=== PATIENT | female | born 1950 | race Caucasian/White ===

== ENCOUNTER 2022-03-23 16:16 | Inpatient (IN) | payer OTHER, SELFPAY ==
[2022-03-22] VITALS (22 sets, daily range): BP systolic 122–154; BP diastolic 61–87; PULSE 47–90; RESP 11–18; TEMP 35.5–36.2; O2SAT 88–97; BMI 37.0
[2022-03-22] MEDS: LACTATED RINGERS 1000 ML 1,000 ML 100 ML IV ×2 (11:00→13:53)
[2022-03-22] MEDS: CEFAZOLIN 2 GM INJ IVP (11:30)
[2022-03-22] MEDS: SODIUM CHLORIDE 0.9 % (FLUSH) 10 ML SYRINGE IVF (11:38)
--- NOTE | 2022-03-22 13:19 | SUR.PREOP ---
right calf small open scratch. blood noted on chair when pt stood up. Covered with bandaid.
--- NOTE | 2022-03-22 14:17 | SUR.OPER ---
PATIENT QUESTIONS ANSWERED SATISFACTORILY PREOPERATIVELY. ? PATIENT BROUGHT TO OR #4 PER CART. ? ?Patient positioned supine on OR #4 bed.?The perioperative?team supported arms bilaterally on arm boards. Final approval of positioning by surgeon.?
--- NOTE | 2022-03-22 15:20 | P.GSOP_ITS ---
Operative Note Date of procedure: 03/26/22 Type of Procedure: open retro rectus ventral hernia repair with placement of mesh. Incarcerated recurrent hernia. Procedure Description: Dr. Buckner was in the operating room and had already made an incision when I came in. I assisted with retraction while she continued through dissection of the subcutaneous tissues. Dissection was continued with electrocautery. She was able to identify the anterior fascia. Dissection was made difficult secondary to multiple hernias and hernia sacs that were present, As well as associated scar tissue from previous surgeries. A hernia sac was identified and sharply entered with Metzenbaum scissors. Once in the abdomen we were able to take down adhesions sharply with Metzenbaum scissors. I assisted with retraction at this portion of the procedure while Dr. Buckner carefully dissected bowel away from the abdominal wall. once all of the adhesions were taken down we were able to identify several hernias within the midline. A large hernia was also present right lateral to midline with incarcerated omentum and preperitoneal fat. This was able to be reduced in the hernia sac taken down. the anterior fascia was incised superiorly and inferiorly to connect all of the associated hernias. I then assisted with retraction of the anterior fascia well Dr. Buckner created a plane anterior to the posterior fascia. This was performed with electrocautery and carried circumferentially around all of the known hernias. Once circumferential dissection was performed she then brought together the posterior fascia with running 0 Vicryl suture. The resulting defect was measu red and Dr. Buckner chose the appropriate sized mesh to place within the cavity, allowing for overlap. The mesh fit nicely into this retro rectus space and was secured with interrupted trans fascial stitches of 2 0 Prolene. The anterior fascia was then brought together with two running looped 0 Maxon sutures. At this portion of the procedure I left the operating room. Please see Dr. Buckner note for further details and closure. ? Findings: Multiple ventral hernias of the anterior abdominal wall Anesthesia: GETA Surgeon: Enedina Buckner MD Co-Surgeon: Ashley Arauz MD Condition: stable Disposition: floor
[2022-03-22] MEDS: BUPIVACAINE 0.25% 30 ML INJECTION (15:23)
--- NOTE | 2022-03-22 15:41 | PM.GSPRC ---
Operative Note Date of procedure: 03/22/22 Type of Procedure: Open repair of incarcerated recurrent ventral hernia. Procedure Description: After discussing the risks and benefits of the procedure, the patient signed informed consent.? The operative site was marked and the patient was brought to the operating room and placed on the operating table in supine position.? Care was taken to pad the patient's pressure points.?? The patient was then intubated by anesthesia.?? The operative site was then prepped and draped in the usual sterile fashion.? A time-out was then performed. The hernia was noted to be in the upper portion of her incision. I incised her prior abdominal incision with a knife above the umbilicus. Dissection was taken down into the subcutaneous fat in the midline. She was noted to have at least 2 medium-sized hernias, 1 to the right of midline. I continued my dissection down in the midline until some prior Prolene suture was encountered. The midline was incised and I was able to enter the peritoneal cavity. I then identified the hernia defect just superior to this. I connected openings. I then palpated in the abdominal cavity. There was some filmy adhesions however no dense bowel adhesions noted. I was able to palpate another small Panamanian cheese defect inferiorly above the umbilicus as well as just to the left of this. I then encountered a much larger defect on the right above the umbilicus. I incised the fascia to just above the umbilicus to encompass all of the small hernia defects in the midline as well as to the upper hernia defect near the superior aspect of the old incision. Once this was done I did reduce do so the right-sided abdominal hernia which contained incarcerated fat. The hernia defect measured approximately 3 cm. There was a small amount of filmy adhesions to the fascia which I took down sharply with scissor. During this time Dr. Arauz assisted in retraction of the fascia as well as intra-abdominal contents facilitate lysis of these adhesions once the posterior rectus sheath appeared to be free and all the hernias were identified and reduced, I began by entering the posterior rectus sheath just posterior to the now divided linea alba. Using cautery, I incised the posterior rectus sheath the rectus muscle was identified. Using a right angle I did open the posterior rectus sheath down the length of the incision on the right. Once I encountered the more lateral hernia defect, I dissected the posterior sheath free with a combination of cautery and blunt dissection While I did this, Dr. Arauz retracted the anterior rectus sheath anteriorly. Once this was done, I closed the hole in the posterior rectus sheath with 3-0 Vicryl. I then turned my attention to the left side. Again I incised the rectus sheath just behind the midline posteriorly. I encountered some old hernia mesh which appeared to be from a prior onlay repair. I was able to identify the rectus muscles and again dissect the posterior rectus sheath from the rectus muscles, creating a retrorectus space. I took my dissection up above and below the prior hernia defects in order to create a space to place the mesh. Once this was done the wound was examined for hemostasis which appeared adequate. Prolene sutures from the patient's prior abdominal plasty were removed. I then, using 0 Vicryl began closing the posterior rectus fascia. I closed the bottom portion of the posterior rectus sheath whilel Dr. Arauz retracted the anterior rectus sheath and rectus abdominus muscles. Dr. Arauz then closed the superior aspect of the posterior rectus sheath in the midline. There was a small amount of tension superiorly, however otherwise the tissue came together without tension. The space was measured and measured approximately 14 cm. The prior space between the hernia defects were noted to be 9 cm. This gave us 5 cm of overlap. Because of the patient's history of Crohn disease, I elected to use Phasix mesh rather than permanent mesh in the event that she would need further abdominal surgeries. I obtained a piece of 10 x [address] in the space. It fit quite well. Subcutaneous flaps were made on either side of the incision just large enough to place a stay suture to hold the mesh in place. I then placed 2, 2 0 PDS stitches through the anterior rectus sheath on the right into the mesh to hold it in place in the space. Dr. Arauz then placed 2, 2 0 PDS stitches on the left to hold the mesh into place. There was a fairly large hernia sac in the subcutaneous space on the right from the patient's more lateral hernia defect. The hernia sac was removed. I then closed the anterior fascial defect of the right lateral hernia using a running 1. PDS. Once this was done, the anterior rectus sheath was closed with running looped [address] Arauz assisted in retraction. This came together without tension. There was no change in the patient's peak ventilatory pressures. Local anesthetic was then injected in the skin and subcutaneous tissue as well as the fascia. I then placed 1 stitch with 3 0 Vicryl to help close the space where the right lateral hernia was located and prevent fluid accumulation. The dermis was then closed with 3 0 Vicryl interrupted stitches. The skin was then closed with 4 0 Monocryl running subcuticular suture. Glue was then applied. ?? The patient was then woken and transported to the recovery area in stable condition. ? The patient tolerated the procedure well. Findings: Panamanian-cheese defect of the upper abdominal incision with several small 1 cm defects and 1, 3 cm defect off the midline. Evidence of prior hernia repair and abdominal plasty. Anesthesia: GETA Surgeon: Enedina Buckner MD Co-Surgeon: Ashley Arauz MD Estimated blood loss (mL): 10 Condition: stable Disposition: PACU
--- NOTE | 2022-03-22 15:51 | W.ANESCHARGE ---
Anesthesia Charges Start Date/Time Anesthesia Start Date: 03/22/22 Anesthesia Start Time: 13:22 Stop Date/Time Anesthesia Stop Date: 03/22/22 Anesthesia Stop Time: 15:45 Summary Emergency: No Extremes of Age: Over 69-CPT [id number]
[2022-03-22] MEDS: fentaNYL 100 MCG/2 ML inj 50 MCG IVP ×3 (16:03→16:23)
[2022-03-22] MEDS: LACTATED RINGERS 1000 ML 1,000 ML 125 ML IV (17:22)
[2022-03-22] MEDS: HYDROmorphone 0.5 mg/0.5 ml inj IVP (18:45)
[2022-03-22] MEDS: TRAMADOL HCL 50 MG TABLET PO (20:46)
[2022-03-22] MEDS: GABAPENTIN 100 MG CAPSULE PO (20:46)
[2022-03-22] MEDS: CYCLOBENZAPRINE HCL 10 MG TABLET PO (20:46)
[2022-03-22] MEDS: diphenhydrAMINE 25 MG CAPSULE PO (23:50)
[2022-03-23] MEDS: LACTATED RINGERS 1000 ML 1,000 ML 125 ML IV (00:46)
[2022-03-23] MEDS: ONDANSETRON 2 MG/ML inj IVP (01:58)
[2022-03-23 02:45] VITALS: BP 165/90; PULSE 69; RESP 20; TEMP 36.3; O2SAT 96
[2022-03-23] MEDS: TRAMADOL HCL 50 MG TABLET PO ×4 (03:21→20:35)
--- NOTE | 2022-03-23 06:35 | W.ANESCHARGE ---
Anesthesia Charges Start Date/Time Anesthesia Start Date: 03/22/22 Anesthesia Start Time: 13:22 Stop Date/Time Anesthesia Stop Date: 03/22/22 Anesthesia Stop Time: 15:45 Summary Emergency: No
--- NOTE | 2022-03-23 06:56 | PC.NURSE ---
pt pleasant and cooperative. Calls appropriately. SBA. c/o pain in abd, Ultram given x 2. pt requested something for sleep & had mentioned she was itchy, [facility] called & Benadryl ordered, pt stated relief.?BP 130s/80s. HR 60s-70s. Midline vertical incision [place], glue intact, no drainage, surrounding tissue is pink. Abd binder on. Ice to abdomen. Bowel sounds hypoactive. Pt states she has not yet passed flatus.?No BM.
[2022-03-23 07:00] VITALS: BP 138/72; PULSE 68; RESP 18; TEMP 36.7; O2SAT 94
[2022-03-23] MEDS: GABAPENTIN 100 MG CAPSULE PO (08:23)
[2022-03-23] MEDS: ACETAMINOPHEN 325 MG TABLET 650 MG PO ×4 (08:23→22:33)
[2022-03-23] MEDS: OMEPRAZOLE 20 MG CAPSULE DR PO (08:23)
[2022-03-23 11:00] VITALS: BP 140/59; PULSE 68; RESP 24; O2SAT 93
--- NOTE | 2022-03-23 12:03 | P.GSPN_ITS ---
Subjective Subjective Date Seen: 03/23/22 Interval history: Chrissy is stable. She is having pain as expected at the incision site. This morning she had indigestion which was helped with Mylanta. Pain is controlled with p.o. pain meds. She has been using her incentive spirometry. No chest pain or shortness of breath. She did have a mild amount of nausea this morning. She is not passing any gas. Exam Narrative: Exam Narrative: General: No acute distress CV: Regular rate and rhythm Respiratory: Clear to auscultation bilaterally Abdomen: Soft, appropriately tender for the postoperative state. Incision is clean and dry without erythema Const: Vital Signs, click to edit/add: Vital Signs - 24 hr 03/22/22 15:43 03/22/22 15:45 03/22/22 15:50 Temperature 96.7 F L Pulse Rate 67 61 61 Pulse Rate [Right Pulse Oximeter] Respiratory Rate 12 13 15 Blood Pressure 153/85 H 154/79 H 145/74 H Blood Pressure [Le ft Arm] Pulse Oximetry 90 91 90 03/22/22 15:55 03/22/22 16:00 03/22/22 16:05 Temperature Pulse Rate 63 59 L 60 Pulse Rate [Right Pulse Oximeter] Respiratory Rate 14 14 14 Blood Pressure 143/74 H 153/78 H 153/82 H Blood Pressure [Le ft Arm] Pulse Oximetry 94 94 91 03/22/22 16:10 03/22/22 16:15 03/22/22 16:20 Temperature 96.8 F L Pulse Rate 56 L 60 60 Pulse Rate [Right Pulse Oximeter] Respiratory Rate 12 13 12 Blood Pressure 148/74 H 144/61 H 146/73 H Blood Pressure [Le ft Arm] Pulse Oximetry 94 94 94 03/22/22 16:25 03/22/22 16:30 03/22/22 16:34 Temperature Pulse Rate 56 L 60 65 Pulse Rate [Right Pulse Oximeter] Respiratory Rate 12 11 L 12 Blood Pressure 146/78 H 128/65 140/65 H Blood Pressure [Le ft Arm] Pulse Oximetry 91 97 92 03/22/22 16:45 03/22/22 17:00 03/22/22 17:15 Temperature 96.3 F L 96.6 F L 96.7 F L Pulse Rate 47 L Pulse Rate [Right Pulse Oximeter] 47 L 59 L 59 L Respiratory Rate 16 16 16 Blood Pressure Blood Pressure [Le ft Arm] 122/69 139/81 139/66 Pulse Oximetry 88 97 96 03/22/22 17:30 03/22/22 17:45 03/22/22 18:15 Temperature 96 F L Pulse Rate Pulse Rate [Right Pulse Oximeter] 60 58 L 62 Respiratory Rate 16 16 16 Blood Pressure Blood Pressure [Le ft Arm] 133/68 141/72 H 134/70 Pulse Oximetry 97 97 94 03/22/22 18:45 03/22/22 20:00 03/22/22 23:00 Temperature 96.7 F L 96.8 F L 97 F L Pulse Rate Pulse Rate [Right Pulse Oximeter] 64 66 74 Respiratory Rate 16 16 16 Blood Pressure Blood Pressure [Le ft Arm] 138/74 141/81 H 138/87 Pulse Oximetry 95 96 96 03/23/22 02:45 03/23/22 07:00 03/23/22 11:00 Temperature 97.3 F L 98.1 F Pulse Rate Pulse Rate [Right Pulse Oximeter] 69 68 68 Respiratory Rate 20 18 24 Blood Pressure Blood Pressure [Le ft Arm] 165/90 H 138/72 140/59 H Pulse Oximetry 96 94 93 Progress Note: A&P Assessment and plan (1) S/P hernia repair: Status: Acute Assessment and Plan: The patient is a 71-year-old female postop day 1 status post ventral hernia repair with mesh. Overall she is doing well, however expectedly she is having abdominal pain. Because of the extent of surgery, I recommend that she stay in the hospital at least 1 more day until her pain is better controlled. It is ok ay to advance her diet however if she is nauseated she should go slow. I encouraged ambulation and incentive spirometry. She can wear the abdominal binder for comfort. We will saline lock her fluids. I will start Lovenox for DVT prophylaxis.
[2022-03-23] MEDS: GABAPENTIN 100 MG CAPSULE 200 MG PO ×2 (13:31→20:35)
[2022-03-23 15:00] VITALS: BP 156/92; PULSE 62; TEMP 36.6; O2SAT 92
--- NOTE | 2022-03-23 18:30 | PC.NURSE ---
shift [id number] pt ambulating independently down halls, pain managed with tylenol and tramadol per eMAR. Incision CDI, abdominal binder for comfort intermittently. Tolerating regular diet. Used white noise machine to help take an afternoon nap, and request for Melatonin HS sent to hospitalist on unit, waiting for response. Pt calm and cooperative this shift.
[2022-03-23 19:00] VITALS: BP 152/76; PULSE 63; RESP 20; TEMP 36.6; O2SAT 94
[2022-03-23] MEDS: ENOXAPARIN 40 MG/0.4 ML INJ SUBCUT (20:35)
[2022-03-23] MEDS: CYCLOBENZAPRINE HCL 10 MG TABLET PO (20:35)
[2022-03-23] MEDS: MELATONIN 3 MG TABLET 9 MG PO (21:25)
[2022-03-23 22:57] VITALS: BP 143/67; PULSE 68; RESP 20; TEMP 36.7; O2SAT 97
[2022-03-24 03:00] VITALS: BP 140/55; PULSE 71; RESP 20; TEMP 36.6; O2SAT 93
[2022-03-24] MEDS: TRAMADOL HCL 50 MG TABLET PO (04:47)
--- NOTE | 2022-03-24 06:28 | PC.NURSE ---
Shift 7p-7a: Pt. AOx4, following commands, VSS on RA. Pt. ambulating to toilet and around room independently, c/o pain around abdominal incision site, managed with PRN tylenol and tramadol. Abdominal incision site C/D/I, no redness or signs of infection, covered in an abdominal binder for pt. comfort. Pt. prefers to keep binder on for ambulation. CLIFFORD hose on, SCD's off as pt. is ambulating frequently. Pt. voiding w/o difficulty. Plan for possible discharge to home today
[2022-03-24 07:00] VITALS: BP 136/88; PULSE 78; PULSE 80; RESP 20; TEMP 37.1; O2SAT 95
[2022-03-24] MEDS: GABAPENTIN 100 MG CAPSULE 200 MG PO (09:13)
[2022-03-24] MEDS: ACETAMINOPHEN 325 MG TABLET 650 MG PO (09:13)
[2022-03-24] MEDS: OMEPRAZOLE 20 MG CAPSULE DR PO (09:13)
--- NOTE | 2022-03-24 09:15 | PM.DS1 ---
DS: Providers Provider Date Seen: 03/23/22 Date of admission: 03/23/22 16:16 Primary care physician: Ciaran Wayne MD Admitting Clinician: Enedina Buckner MD Attending Physician on discharge: Enedina Buckner MD DS: Diagnosis Discharge Diagnosis (1) S/P hernia repair: Status: Acute DS: Summary Hospital Course Hospital Course: The patient is a 71 yo female who underwent ventral hernia repair on 03/22/22. Post-operatively she was admitted for pain control. She did well and was deemed safe for d/c home on post-op day 2. Status at Discharge Functional status at discharge: independent ambulation Overall status at discharge: patient is back to baseline Time Spent with Patient Time attestation: Total time spent providing and/or coordinating discharge services: Exam Const: Vital Signs, click to edit/add: Vital Signs - 24 hr 03/23/22 11:00 03/23/22 15:00 03/23/22 19:00 Temperature 97.8 F 98 F Pulse Rate [Right Pulse Oximeter] 68 62 63 Respiratory Rate 24 20 Blood Pressure [Le ft Arm] 140/59 H 156/92 H 152/76 H Pulse Oximetry 93 92 94 03/23/22 22:57 03/24/22 03:00 Temperature 98.1 F 97.9 F Pulse Rate [Right Pulse Oximeter] 68 71 Respiratory Rate 20 20 Blood Pressure [Le ft Arm] 143/67 H 140/55 H Pulse Oximetry 97 93 Discharge Plan Discharge Disposition: Home, Self-Care Date of Admission: 03/23/22 16:16 Attending Provider on Discharge: Enedina Buckner Primary Care Provider: Ciaran Wayne Condition: Stable Anticipated Discharge Date/Time: 03/24/22 14:14 Discharge Medications: New tramadol 50 mg Tablet 50 - 100 mg PO Q6H PRN (Reason: Pain) Qty: 20 0RF gabapentin 100 mg Capsule 200 mg PO TID Qty: 42 0RF Continued cyclobenzaprine 10 mg tablet 10 mg PO HS 0RF omeprazole 20 mg capsule,delayed release(DR/EC) 20 mg PO DAILY 0RF albuterol sulfate 90 mcg/actuation HFA aerosol inhaler 2 inh inhalation Q4-6H PRN0RF melatonin 5 mg tablet,chewable 7.5 mg PO HS 0RF Discharge Orders: Discharge Order (Routine); Ordered 03/24/22 Ordered By: Enedina Buckner Patient Education: Open Herniorrhaphy (DC), Surgical Site Infections (DC), Deep Sedation (DC), Post-Operative Instructions: Hernia Repair Activity Restrictions/Additional Instructions: Your sutures are under the skin and will dissolve over time. Leave glue over incisions until it falls off. OK to shower but avoid bathing, soaking or swimming for 2 weeks. Pat the incisions dry. No need to wash or scrub the area. Apply ice to the area as needed for swelling. It is also OK to use a heating pad if this provides more comfort to you. Pain control: You were prescribed two pain medications. The 1st medication is called gabapentin and you take that scheduled 3 times a day. You should take this for 1 week after surgery and after this you can start decreasing the dose to 100 mg 3 times a day if you are feeling that your pain has improved. The 2nd pain medication you take as needed for moderate to severe pain. As your pain improves, you can try taking acetaminophen instead of the prescribed pain pill. Take an [id number] stool softener while you are taking prescribed pain medications to help alleviate constipation. I recommend Senna and/or Colace. Take as directed on package. If you have not had a bowel movement in 3 days, try taking Miralax as directed on the package. All of these are available over the counter. Follow-up Follow up with Dr. Buckner in 2-3 weeks Please call if you are experiencing severe pain, nausea, vomiting, difficulty urinating, fever or have not had bowel movement in 4 days after surgery. Activity Level: No strenuous activity Activity Detail: No lifting more than 20 lb for 4 weeks Discharge Diet: Regular Follow Up Appointments: Ciaran Wayne MD [Primary Care Provider] - Forms: Work/Release Restrictions
--- NOTE | 2022-03-24 11:56 | PC.NURSE ---
Discharge Note: Pt friendly and cooperative this morning, continues to c/o 4-6/10 pain that improves with ice and PRN medications. She is up moving independently throughout her room wearing abdominal binder for support. Tolerating regular diet without difficulty. Surgical incision to medial abdomen well approximated and appears free of infection. Pt verbalizes understanding of discharge instructions and follow up appointments. She was discharged to home via wheelchair in the care of her daughter at 1050.
== END 2022-03-24 12:01 | disposition home or self-care (01) | DRG 354 ==
LOC: OR 16:23 → MEDSURG 03-24 09:15
PROVIDERS: Admitting Provider Surgery; PCP Family Medicine; Visit Provider Surgery
PROC: 0WUF0JZ Supplement Abdominal Wall with Synthetic Substitute, Open Approach (ICD-10-PCS; principal; 2022-03-22 12:45)
DX: K43.0 Incisional hernia with obstruction, without gangrene (principal); K50.90 Crohn's disease, unspecified, without complications; R73.03 Prediabetes; M79.7 Fibromyalgia
CPT/HCPCS: 00752; 99100; A4467; A9270; C1781; J0131; J0330; J0690; J1100; J1170; J1650; J2405; J2704; J2710; J3010; J3490; J7120

== ENCOUNTER 2024-12-26 08:53 | Emergency (ER) | payer OTHER, SELFPAY ==
[2024-12-26] VITALS (35 sets, daily range): BP systolic 132–172; BP diastolic 72–97; PULSE 61–74; RESP 9–32; TEMP 36.6; O2SAT 94–99; BMI 32.9
--- OUTSIDE RECORDS SUMMARY | 2024-12-26 08:55 | XMS_ITS | Clinical Summary ---
Author Organization [facility] Address [address] [place] [address] Care Team Providers Care Equipment Superintendent Name Role Phone Ciaran Wayne MD Unavailable Ciaran Wayne MD Primary Care Provider Benita Navas RN Unavailable [phone] Racheal Velazquez RN Unavailable [phone] Katherine Guzman RN Unavailable Allergies Active Allergy Reactions Criticality Noted Date Comments House Dust 12/30/2006 Latex Erythema 06/27/2010 Oxycodone Other - Describe In Comment Field 05/29/2012 crawly sensation. Medications cholecalciferol, vitamin D3, 100 mcg (4,000 unit) tab Take 1 Tablet by mouth once daily. Active cyclobenzaprine (FLEXERIL) 10 mg tabletIndications :Fibromyalgia Take 1 Tablet (10 mg) by mouth 2 times daily if needed for Muscle Spasm. 180 Tablet 1 5 Active diphenoxylate-atr opine, 2.5-0.025 mg, (LOMOTIL) 2.5-0.025 mg tabletIndications :Crohn's disease of small intestine with complication (HC) Take 1 Tablet by mouth 3 times daily if needed for Diarrhea. 180 Tablet 5 5 Active ketoconazole 2% shampoo (NIZORAL) 2 % shampooIndication s:Seborrhea capitis Lather on damp scalp, leave on for 5min, then rinse with water. Apply 2-3 times per week Apply topically to affected area(s). 120 mL 3 Active Active Problems Problem Noted Date Diagnosed Date Obesity 10/01/2023 Small bowel obstruction (HC) Recurrent. 09/05/19 Crohn's disease of small intestine with complica tion 02/27/2022 Overview (12/26/2023): Colonoscopy 11/2023 a few ileal erosions, repeat colonoscopy in 5 years, fecal calprotectin yearly Psoriasis 08/10/2014 Overview (08/10/2014): Sees Dermatology. Degenerative arthritis of knee 06/23/2014 Overview (08/10/2014): bilateral knee injections by Dr. Sage around 2011. May 2014: bilateral cortisone injections to knees by Dr. Loo: 80% better in both knees but for only 2 weeks. July 2014: left knee synvisc One injection. Family history of malignant neoplasm of gastrointestinal tract 07/16/2011 Vitamin D deficiency 04/09/2011 Fibromyalgia 02/09/2010 Anxiety state, unspecified 11/11/2008 Chronic airway obstruction, not elsewhere classi fied 06/30/2007 Insomnia, unspecified 06/30/2007 Resolved Problems Problem Noted Date Diagnosed Date Resolved Date YANIV (acute kidney injury) 09/07/2022 Sepsis with acute organ dysfunction 09/05/2022 10/01/2023 SBO (small bowel obstruction) 03/28/2021 02/27/2022 CAP (community acquired pneumonia) 12/06/2020 02/27/2022 UTI (urinary tract infection) 12/06/2020 02/27/2022 YANIV (acute kidney injury) 12/06/2020 Diarrhea 12/06/2020 02/27/2022 Elevated LFTs 12/06/2020 02/27/2022 SBO (small bowel obstruction) 08/21/2018 02/27/2022 Benzodiazepine dependence 02/21/2017 Tobacco use disorder 07/09/2012 022 Crohn disease 02/09/2010 02/16/2020 Overview (07/18/2011): Colonoscopy 06/2011 few erosions in ileum repeat in 5 years Hypokalemia 11/11/2008 02/27/2022 Regional enteritis of small intestine with large intestine 12/26/2007 02/16/2020 Chronic fatigue syndrome 06/30/200712/2021 Regional enteritis of unspecified site 12/30/2006 12/26/2007 Crohn's disease of both smal l and large intestine without complication 0 Encounters Date Type Department Care Team Description 10/29/2024 11:40 AM GRADUATION COACH Ancillary Procedure [facility] [address] [place] [address] 10/29/2024 Travel 10/29/2024 Telephone [facility] [address] [place] [address] Ciaran Wayne MD Concerns 10/26/2024 Telephone [facility] [address] [place] [address] Ciaran Wayne MD Results 10/23/2024 2:05 PM GRADUATION COACH Office Visit [facility] [address] [place] [address] Ciaran Wayne MD Medicare ANNUAL (subsequent) Visit (73 year old) 10/23/2024 Telephone [facility] [address] [place] [address] Ciaran Wayne MD Results 10/23/2024 Travel from Last 3 Months Immunizations Immunization Administration Dates Next Due Influenza Virus, Unspecified 06/01/2010 Influenza, IIV3 (Age >=3 years) 05/29/20 12,07/05/2011,05/17/2009,2007,06/30/2007,06/06/2006,06/13/2005,1 ,06/10/2003 Influenza, IIV4 06/10/2014 Pneumococcal Conj 20-valent (Prevnar 20) 10/01/2023 Pneumococcal Poly,23-Valent (Pneumovax) 06/26/2016 Pneumococcal conj 13-Valent (Prevnar 13) 07/01/2015 Td (Age >=7 Years) 05/07/2002 Tdap 07/05/2011 Zoster (Zostavax-ZVL, live) 07/06/2015 Family History Medical History Relation Name Comments Heart Disease Father [place] in his 50s Cancer-breast Maternal Aunt Cancer Maternal Grandfather throat Cancer-breast Maternal Grandmother Brain cancer Mother at 95 Cancer-colon Mother Hypertension Mother Other Mother Dementia, age 8 7 Anesthesia Problem No Family History Cancer-ovarian No Family History Relation Name Status Comments Father Half-Brother 1 Alive Half-Brother 2 Alive Maternal Aunt Maternal Grandfather Maternal Grandmother Mother Alive Neg. Social History Tobacco Use Types Packs/Day Years Used Date Smoking Tobacco: Former Cigarettes Q uit: 05/08/2020 Smokeless Tobacco: Never Tobacco Cessation:Counseling Given: No Alcohol Use Standard Drinks/Week Comments No 0 (1 standard drink = 0.6 oz pur e alcohol) PHQ-2 Answer Date Recorded PHQ-2 TOTAL SCORE 0 10/23/2024 Social Connections Answer Date Recorded Do you often feel lonely or isolated from those around you? 0 10/23/2024 Financial Resource Strain Answer Date R ecorded Difficulty of Paying Living Expenses 3 10/23/2024 Difficulty of Paying Living Expenses Not on file 10/23/2024 Food Insecurity Answer Date Recorded Do you worry your food will run out before you are able to buy more? 1 10/23/2024 Transportation Needs Answer Date Record ed Does lack of transportation keep you from medica l appointments? 1 10/23/2024 Does lack of transportation keep you from work, meetings or getting things that you need? 1 10/23/2024 Housing Stability Answer Date Recorded What is your housing situation today? 1 10/23/2024 Utilities Answer Date Recorded Do you have trouble paying f or utilities (for example, heat, electricity, water, phone)? 1 10/23/2024 Comments No Sex and Gender Information Value Date Recorded Sex Assigned at Not on file Legal Sex Female 5:41 AM GRADUATION COACH Gender Identity Not on file Sexual Orientation Not on file Obstetrics History Para Term AB IAB SAB Ectopic Multiple Livin g Live Births 2 2 2 Date Outcome GA Total Labor Labor/2nd/3rd Weight Sex Type Anes PTL Amie A1 A5 Name Clin Term Term Last Filed Vital Signs Vital Sign Reading Time Taken Comments Blood Pressure 125/78 10/23/2024 1:59 PM GRADUATION COACH Pulse 71 10/23/2024 1:59 PM GRADUATION COACH Temperature 36.3 C (97.3 F) 12/24/2023 10:34 AM CDT Respiratory Rate 12 12/24/2023 11:4 9 AM CDT Oxygen Saturation 93% 10/23/2024 1:59 PM GRADUATION COACH Inhaled Oxygen Concentration - - Weight 99.2 kg (218 lb 12.8 oz) 10/23/2024 1:59 PM GRADUATION COACH Height 166.8 cm (5' 5.67) 10/23/2024 1:59 PM CS T Body Mass Index 35.67 10/23/2024 1:59 PM GRADUATION COACH Plan of Treatment Upcoming Encounters Date Type Department Care Team (Late st Contact Info) Description 01/07/2025 1:00 PM CDT Office Visit [facility] [address] [place] [address] Matti Sherman MD [address] [place] [address] Health Maintenance Due Date Last Done Comments RSV vaccine for adults or (1 - Risk 60-74 years 1-dose series) 2009 Zoster (shingles) series for age 50+ (2 of 3) 08/31/2015 07/06/2015 Tetanus booster 07/05/2021 07/05/2011, 05/07/2002 COVID-19 vaccine series ( season) 2024 Influenza Vaccine (Season Ended) 2025 06/10/2014, 05/29/2012, 07/05/2011, Additional history exists BMI (ht and wt on same day) for age 18+ 10/23/2025 10/23/2024, 10/01/2023, 03/13/2022, Additional history exists Medicare Wellness for age 65+ 10/24/2025, 10/01/2023, 02/27/2022, Additional history exists Depression screening for age 12+ 10/29/2025 10/29/2024, 10/26/2024, 10/23/2024, Additional history exists Mammogram for age 45-75 10/29/2025 10/30/19 25, 03/01/2022, 03/10/2018, Additional history exists Colonoscopy through age 75 12/23/202812/23, 12/24/2023, 12/24/2023, Additional history exists Lipids for age 45-75 10/23/2029 10/23/2024, 10/01/2023, 03/07/2018, Additional history exists Tdap Completed 07/05/2011 Hepatitis C screening for ag e 18-79 Completed 06/27/2016, 04/24/2004 DEXA/DXA scan for age 65+ Completed 2021, 12/27/2014, 12/03/2008, Additional history exists Pneumococcal series for age 50+ Completed 10/01/2023, 06/26/2016, 07/01/2015 Procedures Procedure Name Priority Date/Time Associated Diagnosis Comments XR MAMMO AMRIT BILAT SCREEN IMPLANT Routine 10/29/2024 11:47 AM GRADUATION COACH Visit for screening mammogram URINALYSIS MICROSCOPIC Routine 10/23/2024 2:45 PM GRADUATION COACH Dysuria URINE CULTURE Routine 10/23/2024 2:45 PM GRADUATION COACH Dysuria URINALYSIS MACROSCOPIC - [facility] ONLY POC DIP ([facility]) Routine 10/23/2024 2:45 PM GRADUATION COACH Dysuria VITAMIN D 25 (DEFICIENCY) Routine 10/23/2024 2:36 PM GRADUATION COACH Vitamin D deficiency LIPID PANEL W REFLEX MEASURED LDL Routine 10/23/2024 2:36 PM GRADUATION COACH Lipid screening BASIC METABOLIC PANEL Routine 10/23/2024 2:36 PM GRADUATION COACH Stage 3a chronic kidney disease (HC) HEMOGLOBIN A1C Routine 10/23/2024 2:36 PM GRADUATION COACH Prediabetes COLONOSCOPY SCREENING Routine 12/24/2023 10:13 AM CDT Screening for colon cancer XR DXA BONE DENSITY 2 SITES AXIAL Routine 02/28/2022 1:18 PM CDT Adverse effect of corticosteroids, sequela ANTI HCV Routine 06/27/2016 11:18 AM CDT Need for hepatitis C screening test from Last 3 Months or Most Recently Relevant to Health Maintenance Results * XR MAMMO AMRIT BILAT SCREEN IMPLANT (10/29/2024 11:47 AM GRADUATION COACH) Anatomical Region Laterality Modality BREASTS, Breast Left, Breast Right Bilateral Mammography Impressions 10/29/2024 3:29 PM GRADUATION COACH There is no radiographic evidence for malignancy. Recommend annual mammograms. MAMMOGRAM ASSESSMENT: ACR 2 Benign PATIENTS: You will also receive a letter with your examination results in an easy to read format. If you have questions about your results, please contact your referring provider. Narrative 10/29/2024 3:29 PM GRADUATION COACH For Patients: As a result of the Cures Act, medical imaging exams and procedure reports are released immediately into your electronic medical record. You may view this report before your referring provider. If you have questions, please contact your health care provider. XR MAMMO AMRIT BILAT SCREEN IMPLANT [[id number]] CLINICAL HISTORY: This is an asymptomatic 73 y.o. patient. INDICATION FOR EXAM: Mammogram Screening. TECHNIQUE: CC and MLO views were obtained. Implant displacement views were obtained. This study was evaluated with the assistance of Computer-Aided Detection. Breast Tomosynthesis was used in interpretation. COMPARISON FILMS: Yes 03/01/22 [facility] 03/10/18 [facility] FINDINGS: There are scattered areas of fibroglandular density. No suspicious masses or microcalcifications. There are breast implant(s) present.. us Ciaran Wayne MD MAMMO Final Result * (ABNORMAL) POCT Urinalysis Dipstick Only (10/23/2024 2:45 PM GRADUATION COACH) PH 5.5 5.0 - 8.0 [facility] SPECIFIC GRAVITY 1.025 1.001 - 1.035 [facility] GLUCOSE NEGATIVE NEGATIVE [facility] BILIRUBIN NEGATIVE NEGATIVE [facility] KETONES TRACE(A) NEGATIVE [facility] OCCULT BLOOD NEGATIVE NEGATIVE [facility] PROTEIN 1+(A) NEGATIVE [facility] NITRITE NEGATIVE NEGATIVE [facility] LEUKOCYTE ESTERASE 1+(A) NEGATIVE [facility] Urine URINE SPECIMEN / Unknown 10/23/2024 2:45 PM GRADUATION COACH 10/23/2024 2:46 PM GRADUATION COACH us Ciaran Wayne MD URINE Final Result Performing Organization Address City/[facility]/ZIP Co de Phone Number [facility] [address] [place] [address], [facility] [address] [place] [address] * (ABNORMAL) URINALYSIS MICROSCOPIC (10/23/2024 2:45 PM GRADUATION COACH) RBC 0-2 0-2, None Seen /HPF 10/23/2024 10:16 PM GRADUATION COACH [facility] WBC 51-100(A) 0-2, 3-5, None Seen /HPF 10/23/2024 10:16 PM GRADUATION COACH [facility] BACTERIA Few None Seen, Rare, Few Bacteria/ HPF 10/23/2024 10:16 PM GRADUATION COACH [facility] EPITHELIAL CELLS Few None Seen, Few Epi/HPF 10/23/2024 10:16 PM GRADUATION COACH [facility] HYALINE CASTS 3-5 0-2, 3-5 /LPF 10/23/2024 10:16 PM GRADUATION COACH [facility] Urine URINE SPECIMEN / Unknown Non-Blood / Unknown 10/23/2024 2:45 PM GRADUATION COACH 10/23/2024 2:45 PM GRADUATION COACH us Ciaran Wayne MD URINE Final Result [facility] [address] [place] [address], * (ABNORMAL) URINE CULTURE (10/23/2024 2:45 PM GRADUATION COACH) CULTURE RESULT(A) 10/26/2024 7:06 AM GRADUATION COACH [facility] CULTURE 10,000-50,000 CFU/mL Klebsiella pneumoniae 10/26/2024 7:06 AM GRADUATION COACH [facility] Urine URINE SPECIMEN / Unknown Non-Blood / Unknown 10/23/2024 2:45 PM GRADUATION COACH 10/23/2024 2:45 PM GRADUATION COACH Narrative Organism Antibiotic Method Susceptibility Klebsiella pneumoniae TRIMETHOPRIM/SULF <=09/13: S Klebsiella pneumoniae AMPICILLIN R Klebsiella pneumoniae CEFAZOLIN 2: S Klebsiella pneumoniae CEFAZOLIN-UC 2: S Comment:Cefazolin-UC interpretations are for therapy of uncomplicated UTIs due to E.coli, K.pneumoniae, or P.mirablis. Cefazolin breakpoint is used as a surrogate to predict results for the oral agents - cefdinir, cefuroxime, and cephalexin, when used for therapy of uncomplicated UTIs due to E coli, K, pneumoniae, and P. mirabilis. The FDA recommends cefadroxil susceptibility can be deduced from cefazolin. Klebsiella pneumoniae GENTAMICIN <=1: S Klebsiella pneumoniae CEFTRIAXONE <=0.25: S Klebsiella pneumoniae CEFTAZIDIME <=0.5: S Klebsiella pneumoniae LEVOFLOXACIN <=0.12: S Klebsiella pneumoniae CIPROFLOXACIN <=0.06: S Klebsiella pneumoniae PIPERACILLIN/TAZO <=4: S Klebsiella pneumoniae AMPICILLIN/SULBACTAM <=2: S Klebsiella pneumoniae CEFEPIME <=0.12: S Klebsiella pneumoniae MEROPENEM <=0.25: S Klebsiella pneumoniae NITROFURANTOIN 64: I Ciaran Wayne MD MICROBIOLOGY Final Result [facility] [address] [place] [address], * (ABNORMAL) HEMOGLOBIN A1C (10/23/2024 2:36 PM GRADUATION COACH) HEMOGLOBIN A1C 5.7(H) <5.7 % of total Hgb [facility] Comment: For someone without known diabetes, a hemoglobin A1c value between 5.7% and 6.4% is consistent with prediabetes and should be confirmed with a follow-up test. For someone with known diabetes, a value <7% indicates that their diabetes is well controlled. A1c targets should be individualized based on duration of diabetes, age, comorbid conditions, and other considerations. This assay result is consistent with an increased risk of diabetes. Currently, no consensus exists regarding use of hemoglobin A1c for diagnosis of diabetes for children. Blood BLOOD SPECIMEN / Unknown 10/23/2024 2:36 PM GRADUATION COACH 10/23/2024 2:37 PM GRADUATION COACH us Ciaran Wayne MD CHEMISTRY Final Result [facility] [address] [place] [address], [facility] [address] [place] [address] * (ABNORMAL) LIPID PANEL W REFLEX MEASURED LDL (10/23/2024 2:36 PM GRADUATION COACH) [facility] CHOLESTEROL, TOTAL 173 <200 mg/dL [facility] HDL CHOLESTEROL 49(L) > OR = 50 mg/dL [facility] TRIGLYCERIDES 353(H) <150 mg/dL [facility] Comment: If a non-fasting specimen was collected, consider repeat triglyceride testing on a fasting specimen if clinically indicated. Paco et al. J. of Clin. Lipidol. 2015;9:129-169. LDL-CHOLESTEROL 81 mg/dL (calc) [facility] Comment: Reference range: <100 Desirable range <100 mg/dL for primary prevention; <70 mg/dL for patients with CHD or diabetic patients with > or = 2 CHD risk factors. LDL-C is now calculated using the Ele calculation, which is a validated novel method providing better accuracy than the Friedewald equation in the estimation of LDL-C. Matti GALVAN et al. GEOVANY. 2013;310(19): 7711-6216 (http://education.[employer]/faq/XQE556) CHOL/HDLC RATIO 3.5 <5.0 (calc) [facility] NON HDL CHOLESTEROL 124 <130 mg/dL (calc) [facility] Comment: For patients with diabetes plus 1 major ASCVD risk factor, treating to a non-HDL-C goal of <100 mg/dL (LDL-C of <70 mg/dL) is considered a therapeutic option. Blood BLOOD SPECIMEN / Unknown 10/23/2024 2:36 PM GRADUATION COACH 10/23/2024 2:37 PM GRADUATION COACH Ciaran Wayne MD CHEMISTRY Final Result Performing Organization Address [facility] Co de Phone Number [facility] [address] [place] [address], [facility] [address] [place] [phone] * (ABNORMAL) VITAMIN D 25 (DEFICIENCY) (10/23/2024 2:36 PM GRADUATION COACH) VITAMIN D,25-OH,TOTAL,IA 26(L) 30 - 100 ng/mL [facility] Comment: Vitamin D Status 25-OH Vitamin D: Deficiency: <20 ng/mL Insufficiency: 20 - 29 ng/mL Optimal: > or = 30 ng/mL For 25-OH Vitamin D testing on patients on D2-supplementation and patients for whom quantitation of D2 and D3 fractions is required, the [facility]() 25-OH VIT D, (D2,D3), LC/MS/MS is recommended: order code 60989 (patients >2yrs). See Note 1 Note 1 For additional information, please refer to http://education.[employer]/faq/ZBS021 (This link is being provided for informational/ educational purposes only.) Blood BLOOD SPECIMEN / Unknown 10/23/2024 2:36 PM GRADUATION COACH 10/23/2024 2:37 PM GRADUATION COACH Ciaran Wayne MD SEND OUTS Final Result [facility] [facility] [address] [place] [address], [place] [phone] [facility] [address] [facility] [place] [address] * (ABNORMAL) BASIC METABOLIC PANEL (10/23/2024 2:36 PM GRADUATION COACH) GLUCOSE 91 65 - 99 mg/dL [facility] Comment: Fasting reference interval UREA NITROGEN (BUN) 14 7 - 25 mg/dL [facility] CREATININE 1.33(H) 0.60 - 1.00 mg/dL [facility] EGFR 42(L) > OR = 60 mL/min/1.7 3m2 [facility] BUN/CREATININE RATIO 11 6 - 22 (calc) [facility] SODIUM 139 135 - 146 mmol/L [facility] POTASSIUM 4.0 3.5 - 5.3 mmol/L [facility] CHLORIDE 107 98 - 110 mmol/L [facility] CARBON DIOXIDE 20 20 - 32 mmol/L [facility] ELECTROLYTE BALANCE 12 7 - 17 mmol/L (calc) [facility] CALCIUM 9.0 8.6 - 10.4 mg/dL [facility] Blood BLOOD SPECIMEN / Unknown 10/23/2024 2:36 PM GRADUATION COACH 10/23/2024 2:37 PM GRADUATION COACH Ciaran Wayne MD CHEMISTRY Final Result [facility] [address] [place] [address], [place] [phone] [facility] [address] [facility] [place] [address] * COLONOSCOPY (12/24/2023 10:32 AM CDT) 12/24/2023 10:3 2 AM CDT Narrative Transcriptions Matti Sherman MD - 12/24/2023 11:42 AM CDT Patient Name: Chrissy Figueroa Procedure Date: 12/24/2023 Gender: Female Date of : 1950 Admit Type: Outpatient Procedure: Colonoscopy Proceduralist: Matti Sherman MD , Sapna Jama (Nurse), Lisa Reagan (Nurse) Referring MD: Ciaran Wayne Indications/Pre-Op Diagnosis: Screening for colorectal malignant neoplasm, Last colonoscopy: March 2017, Incidental - Crohn's disease of the small bowel Medications: Fentanyl 100 micrograms IV, Midazolam 4 mgIV, The level of sedation administered wasmoderate Procedure Description: The patient had risks, benefits and alternatives explained to andgave informed consent. The patient had a stable cardiopulmonary status and judged an adequate candidate for conscious sedation. The [id number] was passed through the anus and advanced to the cecum, identified by appendiceal orifice and ileocecal valve. Thecolonoscopy was performed without difficulty. The patient tolerated the procedure well. The quality of the bowel preparation was good. The terminalileum and the rectum were photographed. Complications: No immediate complications. Estimated Blood Loss & Specimen: Estimated blood loss: none. Specimen collected - Yes and sent to Laboratory Findings: The perianal and digital rectal examinations were normal. There was evidence of a prior end-to-end ileo-colonic anastomosis inthe ascending colon. This was patent and was characterized by erosion.The anastomosis was traversed. Scattered inflammation characterized by erosions was found in the fide-terminal Ileum. The inflammation was graded as Rutgeerts Score i1 (five or fewer aphthous lesions). Biopsies were taken with a cold forceps for histology. The colon (entire examined portion) appeared normal. Impressions/Post-Op Diagnosis: - Patent end-to-end ileo-colonic anastomosis, characterized byerosion. - Crohn's disease with ileitis. Inflammation was found. This wasgraded as Rutgeerts Score i1 (five or fewer aphthous lesions). Biopsied. - The entire examined colon is normal. Recommendation: - Patient has a contact number available for emergencies. The signsand symptoms of potential delayed complications were discussed with the patient. Return to normal activities tomorrow. Written discharge instructions were provided to the patient. - Resume previous diet. - Continue present medications. - Await pathology results. - Repeat colonoscopy in 5 years for surveillance. Moderate Sedation: A time out was performed before the procedure. Moderate (conscious) sedation was administered by the endoscopy nurse and supervised bythe endoscopist. The following parameters were monitored: oxygensaturation, heart rate, blood pressure, EKG, CO2, respiratory rate, adequacy of pulmonary ventilation and reponse to care. Please refer to the patient's medical record flowsheets and nursing notes for moderate sedation details. Total physician intraservice time was 17 minutes. Matti Sherman MD 12/24/2023 11:42:07 AM This report has been signed electronically. Note Initiated On: 12/24/2023 10:32 AM Procedure Code(s): --- Professional --- 90340, Colonoscopy, flexible; with biopsy, single or multiple Diagnosis Code(s): --- Professional --- Z12.11, Encounter for screening formalignant neoplasm of colon Z98.0, Intestinal bypass and anastomosisstatus K50.00, Crohn's disease of small intestine without complications CPT copyright 2022 [employer]. All rights reserved. The codes documented in this report are preliminary and upon digital strategist senior manager reviewmay be revised to meet current compliance requirements. Scope In: 11:15:21 AM Scope Withdrawal Time 0 hours 10 minutes 24 seconds Scope Out: 11:29:18 AM us Matti Sherman MD PROCEDURE ORD Final Res ult * XR DXA BONE DENSITY 2 SITES AXIAL (02/28/2022 1:18 PM CDT) Anatomical Region Laterality Modality Spine, HIPS, HIPL, HIPR Other Impressions 03/05/2022 8:16 AM CDT Normal bone density. RECOMMENDATIONS: The National Osteoporosis Foundation recommends pharmacologic treatment for patients with T-scores of -2.5 or less, patients with prior history of fragility fractures, or patients with 10-year probability of greater than 3% at hips or greater than 20% of suffering major osteoporotic fractures. Recommend continued optimization of calcium and vitamin D intake through dietary means and/or supplementation and regular exercise. Repeat scan recommended in 3-5 years. Florence Abarca PA-C [facility] 03/05/2022 Narrative 03/05/2022 8:16 AM CDT For Patients: Results are automatically released to your [facility] account once available, in compliance with federal regulations. This means that you may see your results before your provider has had a chance to review them. Please allow 2-3 business days for your provider to comment on the results. XR DXA Bone Mineral Density (BMD) EXAM LOCATION: [address] [address] PATIENT NAME: Chrissy Figueroa DATE OF : 1950 EXAM DATE: 02/28/2022 REQUESTING PROVIDER: Ciaran Wayne MD GENDER AT : female HEIGHT: 5' 6 (02/27/2022) WEIGHT: 229 lb 3.2 oz (02/27/2022) MENOPAUSAL STATUS: Postmenopausal RACE/ETHNICITY: White RISK FACTORS: History of Fragility Fracture (at a major site), Smoking (prior), Steroid Medication (non-topical) and White Race CURRENT MEDICATION FOR BONE LOSS: NONE INDICATION: ADVERSE EFFECT OF CORTICOSTEROIDS COMPARISON DATE(S): 2008 DXA scans are compared to prior studies for a patient only when the two (or more) studies were performed on the same scanner. It is not possible to compare data generated on one scanner to data from another because there are not standards in DXA equipment. This applies even if the two scanners are made by the same certification officer. PROCEDURE: Dual-energy x-ray absorptiometry performed with routine technique. Reporting is completed in the form of a T-score. The T-score represents the standard deviation from peak bone mass based on young healthy adult. A Z-score is used for diagnosis in premenopausal women, and for men under the age of 50. FINDINGS: RESULT LUMBAR SPINE L1 - L4 BMD: 1.240 g/cm2 T-Score: + 0.4 Z-Score: + 0.9 Change from prior in 2008: Increase 1.0%. RESULTS FEMUR Left femoral neck BMD: 0.962 g/cm2 T-Score: - 0.5 Z-Score: + 0.5 Change from prior in 2008: Decrease 3.6%. Right femoral neck BMD: 0.947 g/cm2 T-Score: - 0.7 Z-Score: + 0.4 Change from prior in 2008: Decrease 6.4%. Left hip BMD: 0.987 g/cm2 T-Score: - 0.2 Z-Score: + 0.6 Change from prior in 2008: Decrease 3.8%. Right hip BMD: 1.020 g/cm2 T-Score: + 0.1 Z-Score: + 0.8 Change from prior in 2008: Decrease 0.2%. WHO criteria: Normal: T-score at or above -1 SD Osteopenia: T-score between -1.1 and -2.4 SD Osteoporosis: T-score at or below -2.5 SD Ciaran Wayne MD DEXA Final Result * ANTI HCV (06/27/2016 11:18 AM CDT) HEPATITIS C ANTIBODY Non-Reacti ve Non-Reacti ve 06/27/2016 9:24 PM CDT [facility] Blood BLOOD SPECIMEN / Unknown Venipuncture / Unknown 06/27/2016 11:18 AM CDT 06/27/2016 11:38 AM CDT Narrative [facility] 06/27/2016 9:24 PM CDT Antibodies to HCV not detected; does not exclude the possibility of exposure to HCV. Ciaran Wayne MD SEND OUTS Final Result [facility] [address] [place] [address], [place] from Last 3 Months or Most Recently Relevant to Health Maintenance Insurance [facility] MEDICARE PART B [id number] ONLY [facility] * Guarantor: CHRISSY FIGUEROA I Account Type Relation to Patient Date of Phone Billing Address Motor Vehicle [address] [place] [id number] [facility] [place] Advance Directives Documents on File Type Date Recorded Patient Manager [place] Expl anation Healthcare Directive 09/06/2022 023 * Full Code (Latest Code Status on File) Date Activated Date Inactivated Comments 09/05/2022 5:04 PM 09/07/2022 3:31 PM Question Answer Comments Code Status Discussion: Reviewed Preferences * Full Code Date Activated Date Inactivated Comments 03/28/2021 2:38 PM 03/31/2021 12:44 PM Question Answer Comments Code Status Discussion: Discussed * Full Code Date Activated Date Inactivated Comments 12/07/2020 12:24 AM 12/10/2020 3:25 PM Question Answer Comments Code Status Discussion: Discussed * Full Code Date Activated Date Inactivated Comments 04/29/2019 6:35 PM 05/01/2019 11:18 AM Question Answer Comments Code Status Discussion: Discussed * Full Code Date Activated Date Inactivated Comments 08/21/2018 1:18 PM 08/22/2018 3:23 PM Question Answer Comments Code Status Discussion: Discussed Care Teams Equipment Superintendent Relationship Specialty Start Date End Date Ciaran Wayne MD [address] [place] [address] PCP - General Family Practice 03/18/14 Ciaran Wayne MD [address] [place] [address] Family Practice 07/08/12 Benita Navas RN [address] [address] Structural Design Engineer - [facility] [place] Registered Nurse 08/26/16 Racheal Velazquez RN [address] [facility] [address] [place], [place] [id number] Structural Design Engineer - [facility] Registered Nurse 10/24/16 Katherine Guzman RN [address] [facility] [address] [place], [place] [id number] Structural Design Engineer - [facility] [place] Registered Nurse 07/23/21
--- NOTE | 2024-12-26 09:23 | ED.GENADULT ---
HPI - General Adult General Date Seen: 12/26/24 Chief complaint: Difficulty Swallowing Stated complaint: food lodged in throat Time Seen by Provider: 12/26/24 09:02 Source: patient, family, RN notes reviewed and old records reviewed Mode of arrival: ambulatory Limitations: no limitations History of Present Illness HPI narrative: Patient is a very nice lady who presents here with the something stuck in her throat, she points rate to her Pankaj's apple. Was eating steak last night for her birthday I might add, and the steak got caught, she has been spitting up and has an inability to swallow anything at all including her secretions since. Her fiance who was brought her in, says he tried to get her to come last night, she tells me she has had this happen to her before, and usually after few minutes to an hour she is able to swallow it and it goes away. She has no history of previous esophageal EGDs dilatation is or other issues, I do however noted in her chart that she has had previous upper barium swallows. Denies any fevers chills or sweats she has no chest pain with this, no nausea no vomiting. She has not been spitting up any blood. She has not tried any other maneuvers at home, valsalva or taken any other remedies Allergic to oxycodone which she tells me makes her whimsical History of Crohn's, and has had a previous bowel surgery which she describes as a partial colectomy. Associated symptoms: denies other symptoms Treatments prior to arrival: none Related Data Home Medications ?Medication ?Instructions ?Recorded ?Confirmed cyclobenzaprine 10 mg tablet 10 mg PO HS 03/20/22 12/26/24 diphenoxylate-atropine 2.5 1 tab PO 3XD PRN diarrhea 12/26/24 12/26/24 mg-0.025 mg tablet Allergies Allergy/AdvReac Type Severity Reaction Status Date / Time latex Allergy Erthyema Verified 03/20/22 09:09 oxycodone Allergy crawly Verified 03/20/22 09:09 sensation Review of Systems Status of ROS: Reports: 10 or more systems reviewed and unremarkable except as noted in History and below [facility] Medical History Insomnia ?G47.00 - Insomnia, unspecified (ICD-10) Fibromyalgia ?M79.7 - Fibromyalgia (ICD-10) Crohn's disease ?K50.90 - Crohn's disease, unspecified, without complications (ICD-10) Chronic airway obstruction ?J44.9 - Chronic obstructive pulmonary disease, unspecified (ICD-10) Adjustment disorder with depressed mood ?F43.21 - Adjustment disorder with depressed mood (ICD-10) Surgical History H/O breast augmentation ?Z98.82 - Breast implant status (ICD-10) S/P colostomy takedown ?Z98.890 - Other specified postprocedural states (ICD-10) S/P small bowel resection ?Z90.49 - Acquired absence of other specified parts of digestive tract (ICD-10) H/O: hysterectomy ?Z90.710 - Acquired absence of both cervix and uterus (ICD-10) History of appendectomy ?Z90.49 - Acquired absence of other specified parts of digestive tract (ICD-10) Social History Smoking Status: Former smoker How often do you have a drink containing alcohol: never AUDIT-C Alcohol total score: 0 Caffeine: No Exam Narrative: Exam Narrative: On examination she is in no apparent distress, spitting up in room 3, GCS is 15/15 pupils equal round reactive to light, no scleral icterus redness or TMs are normal oropharynx is entirely normal neck is supple full range of motion, is elicited there is no palpable tenderness over her neck, or lymphadenopathy or palpable masses. Her chest is good air entry bilaterally with easy respirations, heart sounds no clicks murmurs or gallops, her abdomen is soft, there is no guarding no organomegaly bowel sounds are normal, slightly obese. Skin reveals no petechiae rashes she moves all extremities independently well is neurologically intact. She last ate last night. Const: Vital Signs, click to edit/add: Vital Signs - 24 hr 12/26/24 09:05 12/26/24 09:54 12/26/24 09:55 Temperature 97.8 F Pulse Rate 70 71 Pulse Rate [Pulse Oximeter] 72 Respiratory Rate 18 14 Blood Pressure 172/97 H Blood Pressure [Ri ght Upper Arm] 132/88 Pulse Oximetry 94 95 96 Oxygen Delivery Me thod Room Air 12/26/24 10:00 12/26/24 10:02 12/26/24 10:11 Temperature Pulse Rate 67 66 63 Pulse Rate [Pulse Oximeter] Respiratory Rate 18 22 18 Blood Pressure 171/92 H 166/77 H Blood Pressure [Ri ght Upper Arm] Pulse Oximetry 97 97 95 Oxygen Delivery Me thod 12/26/24 10:15 12/26/24 10:16 Temperature Pulse Rate 74 73 Pulse Rate [Pulse Oximeter] Respiratory Rate 23 20 Blood Pressure 150/79 H Blood Pressure [Ri ght Upper Arm] Pulse Oximetry 95 94 Oxygen Delivery Me thod Documenting provider has reviewed patient's vital signs: yes Course Reevaluation(s) Time of Reevaluation #1: 10:18 Reevaluation #1: I discussed with the patient, pop rocks and not work, she is bit he is up. We will try some nitroglycerin, this fails we will try dose of glucagon, but I fear that we will have to involve surgery here. There is a nurse available for endoscopy Time of Reevaluation #2: 11:23 Reevaluation #2: Despite using pop rocks, glucagon, and nitroglycerin we were unable to get the food bolus/meat impaction to go way. I was able to talk to Dr. Turcios from General Surgery, she would be able to do an Endoscopy if we find an nurse. We were unable to find endoscopy nurse, last we were unable to do the procedure, Dr. Turcios is notified of this. Time of Reevaluation #3: 12:39 Reevaluation #3: I spoke to Dr. Radford ER physician at [facility], she accepted her transfer to she did suggest repeating the glucagon, I discussed with the patient and patient declined. Patient would like to go by ALS, which I think is reasonable given her unable to take her secretions. She may need pain medication also. Or other advanced maneuvers in route. Forms have been filled out. Vital Signs Vital signs: Initial Vital Signs Temperature 97.8 F 12/26/24 09:05 Temperature Source Temporal Artery Scan 12/26/24 09:05 Pulse Rate 72 12/26/24 09:05 Respiratory Rate 18 12/26/24 09:05 Blood Pressure 132/88 12/26/24 09:05 Blood Pressure Mean 102 12/26/24 09:05 Blood Pressure Position Sitting 12/26/24 09:05 Pulse Oximetry 94 12/26/24 09:05 Oxygen Delivery Method Room Air 12/26/24 09:05 Vital Signs Temperature 97.8 F 12/26/24 09:05 Pulse Rate 72 12/26/24 09:05 Respiratory Rate 18 12/26/24 09:05 Blood Pressure 132/88 12/26/24 09:05 Pulse Oximetry 94 12/26/24 09:05 Oxygen Delivery Method Room Air 12/26/24 09:05 Temperature 97.8 F 12/26/24 09:05 Pulse Rate 73 12/26/24 10:16 Respiratory Rate 20 12/26/24 10:16 Blood Pressure 150/79 H 12/26/24 10:16 Pulse Oximetry 94 12/26/24 10:16 Oxygen Delivery Method Room Air 12/26/24 09:05 Medications Administered Medications: Generic Name Dose Route Start Last Admin Trade Name Freq PRN Reason Stop Dose Admin Sodium Chloride 1,000 mls @ 125 mls/hr 12/26/24 10:50 12/26/24 11:05 0.9 % Sodium Chloride 1000 Ml IV 125 mls/hr .Q8H MARY Administration Discontinued Medications Generic Name Dose Route Start Last Admin Trade Name Freq PRN Reason Stop Dose Admin Glucagon 1 mg 12/26/24 10:43 12/26/24 11:06 Glucagon,Human Recombinant 1 Mg/Ml Vial IV 12/26/24 10:44 1 mg ONCE ONE Administration Sodium Chloride 1,000 mls @ 1,000 mls/hr 12/26/24 09:30 12/26/24 09:49 0.9 % Sodium Chloride 1000 Ml IV 12/26/24 10:29 1,000 mls/hr .Q1H MARY Administration Nitroglycerin 0.4 mg 12/26/24 10:04 12/26/24 10:10 Nitroglycerin 0.4 Mg Tab.Subl SUBLINGUAL 12/26/24 10:05 0.4 mg ONCE ONE Administration Simethicone/Sodium Bicarb/Citric Ac 1 each 12/26/24 09:20 12/26/24 09:47 Simethicone/Sod Bicarb/Cit Ac 1 Each Gran.Ef.Pk PO 12/26/24 09:21 1 each ONCE ONE Administration Medical Decision Making MDM Narrative Medical decision making narrative: This corresponds to a food impaction, I would not describe it as a partial given what I am seeing. We will go ahead and start an IV, get some labs, give her some fluids, and try some pop rocks, as she is able to handle her secretions. That fails to work, that we can then try some nitroglycerin plus or minus glucose gone, CT scan with no contrast of her chest/neck would also be helpful, and call surgery to see if we have ability to do an endoscopy. Medical Records Medical records reviewed: Yes I reviewed the patient's medical records Lab Data Labs: Lab Results 12/26/24 Range/Units 09:25 WBC 6.27 (4.50-11.00) K/uL RBC 4.65 (4.00-5.20) m/uL Hgb 14.2 (12.0-16.0) gm/dL Hct 41.1 (33.0-51.0) % MCV 88 (80-100) fL MCH 31 (26-34) pg MCHC 35 (32-36) gm/dL RDW Coeff of Brandi 12.5 (11.5-15.5) % Plt Count 243 (140-440) K/uL Neut % (Auto) 55.2 (42.0-72.0) % Lymph % (Auto) 33.2 (20-44) % Irwin % (Auto) 7.8 (0.0-11.0) % Eos % (Auto) 3.0 (0.0-7.0) % Baso % (Auto) 0.6 (0.0-3.0) % Neut # (Auto) 3.46 (1.7-7.0) K/uL Lymph # (Auto) 2.08 (0.90-2.90) K/uL Irwin # (Auto) 0.50 (0.00-0.90) K/UL Eos # (Auto) 0.19 (0.00-0.50) K/uL Baso # (Auto) 0.04 (0.00-0.30) K/uL Abs Immat Gran (auto) 0.01 (0.00-0.30) K/uL Imm/Tot Granulo (auto) 0.2 % Sodium 138 (135-149) mmol/L Potassium 3.7 (3.6-5.1) mmol/L Chloride 110 (96-114) mmol/L Carbon Dioxide 20 (20-32) mmol/L Anion Gap 8 (7-15) mEq/L BUN 19 (7-30) mg/dL Creatinine 1.0 (0.5-1.5) mg/dL Estimated Creat Clear 47.27 Estimated GFR 59 ml/min Glucose 100 (60-115) mg/dL Calcium 8.6 (8.4-10.6) mg/dL ECG Data Attestation: I personally reviewed and interpreted this ECG as follows: Prior ECG tracings: not available for review Interpretation: EKG shows normal sinus rhythm with a ventricular rate of 61, QRS normal 84 milliseconds QT normal at 428 QTC of 430. There is some nonspecific ST wave flattening notable throughout the whole precordial leads, and inferiorly. Assessment: Normal sinus rhythm, ST wave abnormalities, abnormal EKG Discharge Plan Discharge Clinical Impression: Food impaction of esophagus Patient Disposition: Xfer [place] Discharge Location: [facility] Condition: Stable Instructions: Esophageal Foreign Body (ED) Additional Instructions: Patient is sent by ambulance, ALS, Activity Level: Light activity Discharge Diet: Other Diet Detail: nothing by mouth Prescriptions: No Action cyclobenzaprine 10 mg tablet 10 mg PO HS diphenoxylate-atropine 2.5-0.025 mg tablet 1 tab PO 3XD PRN (Reason: diarrhea) Follow Up/Referrals: Ciaran Wayne MD [Primary Care Provider] - Stand Alone Forms: MyHealth Info Instructions
[2024-12-26 09:41] LABS: Basophils Absolute Auto 0.04 K/uL (0.00-0.30); Basophils Percent Auto 0.6 % (0.0-3.0); Eosinophils Absolute Auto 0.19 K/uL (0.00-0.50); Hematocrit 41.1 % (33.0-51.0); Hemoglobin* 14.2 gm/dL (12.0-16.0); Immature Granulocytes Abs Auto 0.01 K/uL (0.00-0.30); Immature Granulocytes Pct Auto 0.2 %; Lymphocytes Absolute Auto 2.08 K/uL (0.90-2.90); Lymphocytes Percent Auto 33.2 % (20-44); Mean Corpuscular HGB Conc 35 gm/dL (32-36); Mean Corpuscular Hemoglobin 31 pg (26-34); Mean Corpuscular Volume 88 fL (80-100); Monocytes Percent Auto 7.8 % (0.0-11.0); Neutrophils Absolute Auto 3.46 K/uL (1.7-7.0); Neutrophils Percent Auto 55.2 % (42.0-72.0); Platelet Count* 243 K/uL (140-440); RDW Coefficient of Variation % 12.5 % (11.5-15.5); Red Blood Count 4.65 m/uL (4.00-5.20); White Blood Count* 6.27 K/uL (4.50-11.00)
[2024-12-26 09:42] LABS: Slide Review Reflex No
--- OUTSIDE RECORDS SUMMARY | 2024-12-26 09:44 | XMS_ITS | Clinical Summary ---
Author Organization [employer] [facility] Address [address] [place] [id number] Care Team Providers Care Chair Pad Maker Name Role Phone Ciaran Wayne MD Unavailable [phone] Ciaran Wayne MD Primary Care Provider Benita Navas RN Unavailable [phone] Racheal Velazquez RN Unavailable Katherine Guzman RN Unavailable Allergies Active Allergy [...] Department Care Team Description 10/29/2024 11:40 AM CREDIT CONSULTANT Ancillary Procedure [facility] [address] [place] [address] 10/29/2024 Travel 10/29/2024 Telephone [facility] [address] [place] [address] Ciaran Wayne MD Concerns 10/26/2024 Telephone [facility] [address] [place] [address] Ciaran Wayne MD Results 10/23/2024 2:05 PM CREDIT CONSULTANT Office Visit [facility] [address] [place] [address] Ciaran Wayne MD Medicare ANNUAL (subsequent) Visit (73 year old) 10/23/2024 Telephone [facility] [address] [place] [address] Ciaran Wayne MD Results 10/23/2024 Travel from [...] History Relation Name Comments Heart Disease Father [place] in his 50s Cancer-breast Maternal Aunt Cancer [...] on file Legal Sex Female 5:41 AM CREDIT CONSULTANT Gender Identity Not on file Sexual Orientation Not on file Obstetrics History Para Term AB IAB SAB Ectopic Multiple Livin g Live Births 2 2 2 Date Outcome GA Total Labor Labor/2nd/3rd Weight Sex Type Anes PTL Amie A1 A5 Name Clin Term Term Last Filed Vital Signs Vital Sign Reading Time Taken Comments Blood Pressure 125/78 10/23/2024 1:59 PM CREDIT CONSULTANT Pulse 71 10/23/2024 1:59 PM CREDIT CONSULTANT Temperature 36.3 C (97.3 F) 12/24/2023 10:34 AM CDT Respiratory Rate 12 12/24/2023 11:4 9 AM CDT Oxygen Saturation 93% 10/23/2024 1:59 PM CREDIT CONSULTANT Inhaled Oxygen Concentration - - Weight 99.2 kg (218 lb 12.8 oz) 10/23/2024 1:59 PM CREDIT CONSULTANT Height 166.8 cm (5' 5.67) 10/23/2024 1:59 PM CS T Body Mass Index 35.67 10/23/2024 1:59 PM CREDIT CONSULTANT Plan of Treatment Upcoming Encounters Date Type Department Care Team (Late st Contact Info) Description 01/07/2025 1:00 PM CDT Office Visit [facility] [address] [place] [address] Matti Sherman MD [address] [place] [address] Health Maintenance Due Date Last Done Comments [...] BILAT SCREEN IMPLANT Routine 10/29/2024 11:47 AM CREDIT CONSULTANT Visit for screening mammogram URINALYSIS MICROSCOPIC Routine 10/23/2024 2:45 PM CREDIT CONSULTANT Dysuria URINE CULTURE Routine 10/23/2024 2:45 PM CREDIT CONSULTANT Dysuria URINALYSIS MACROSCOPIC - [facility] ONLY POC DIP ([facility]) Routine 10/23/2024 2:45 PM CREDIT CONSULTANT Dysuria VITAMIN D 25 (DEFICIENCY) Routine 10/23/2024 2:36 PM CREDIT CONSULTANT Vitamin D deficiency LIPID PANEL W REFLEX MEASURED LDL Routine 10/23/2024 2:36 PM CREDIT CONSULTANT Lipid screening BASIC METABOLIC PANEL Routine 10/23/2024 2:36 PM CREDIT CONSULTANT Stage 3a chronic kidney disease (HC) HEMOGLOBIN A1C Routine 10/23/2024 2:36 PM CREDIT CONSULTANT Prediabetes COLONOSCOPY SCREENING Routine 12/24/2023 10:13 AM [...] AMRIT BILAT SCREEN IMPLANT (10/29/2024 11:47 AM CREDIT CONSULTANT) Anatomical Region Laterality Modality BREASTS, Breast Left, Breast Right Bilateral Mammography Impressions 10/29/2024 3:29 PM CREDIT CONSULTANT There is no radiographic evidence for malignancy. Recommend annual mammograms. MAMMOGRAM ASSESSMENT: ACR 2 Benign PATIENTS: You will also receive a letter with your examination results in an easy to read format. If you have questions about your results, please contact your referring provider. Narrative 10/29/2024 3:29 PM CREDIT CONSULTANT For Patients: As a result of the Cures Act, medical imaging exams and procedure reports are released immediately into your electronic medical record. You may view this report before your referring provider. If you have questions, please contact your health care provider. XR MAMMO AMRIT BILAT SCREEN IMPLANT [[id number]] CLINICAL HISTORY: This is an asymptomatic 73 y.o. patient. INDICATION FOR EXAM: Mammogram Screening. TECHNIQUE: CC and MLO views were obtained. Implant displacement views were obtained. This study was evaluated with the assistance of Computer-Aided Detection. Breast Tomosynthesis was used in interpretation. COMPARISON FILMS: Yes 03/01/22 [facility] 03/10/18 [facility] FINDINGS: There are scattered areas of fibroglandular density. No suspicious masses or microcalcifications. There are breast implant(s) present.. us Ciaran Wayne MD MAMMO Final Result * (ABNORMAL) POCT Urinalysis Dipstick Only (10/23/2024 2:45 PM CREDIT CONSULTANT) PH 5.5 5.0 - 8.0 [facility] SPECIFIC GRAVITY 1.025 1.001 - 1.035 [facility] GLUCOSE NEGATIVE NEGATIVE [facility] BILIRUBIN NEGATIVE NEGATIVE [facility] KETONES TRACE(A) NEGATIVE [facility] OCCULT BLOOD NEGATIVE NEGATIVE [facility] PROTEIN 1+(A) NEGATIVE [facility] NITRITE NEGATIVE NEGATIVE [facility] LEUKOCYTE ESTERASE 1+(A) NEGATIVE [facility] Urine URINE SPECIMEN / Unknown 10/23/2024 2:45 PM CREDIT CONSULTANT 10/23/2024 2:46 PM CREDIT CONSULTANT us Ciaran Wayne MD URINE Final Result Performing Organization Address City/[facility]/ZIP Co de Phone Number [facility] [address] [place] [address], [facility] [address] [place] [address] * (ABNORMAL) URINALYSIS MICROSCOPIC (10/23/2024 2:45 PM CREDIT CONSULTANT) RBC 0-2 0-2, None Seen /HPF 10/23/2024 10:16 PM CREDIT CONSULTANT [facility] WBC 51-100(A) 0-2, 3-5, None Seen /HPF 10/23/2024 10:16 PM CREDIT CONSULTANT [facility] BACTERIA Few None Seen, Rare, Few Bacteria/ HPF 10/23/2024 10:16 PM CREDIT CONSULTANT [facility] EPITHELIAL CELLS Few None Seen, Few Epi/HPF 10/23/2024 10:16 PM CREDIT CONSULTANT [facility] HYALINE CASTS 3-5 0-2, 3-5 /LPF 10/23/2024 10:16 PM CREDIT CONSULTANT [facility] Urine URINE SPECIMEN / Unknown Non-Blood / Unknown 10/23/2024 2:45 PM CREDIT CONSULTANT 10/23/2024 2:45 PM CREDIT CONSULTANT us Ciaran Wayne MD URINE Final Result [facility] [address] [place] [address], * (ABNORMAL) URINE CULTURE (10/23/2024 2:45 PM CREDIT CONSULTANT) CULTURE RESULT(A) 10/26/2024 7:06 AM CREDIT CONSULTANT [facility] CULTURE 10,000-50,000 CFU/mL Klebsiella pneumoniae 10/26/2024 7:06 AM CREDIT CONSULTANT [facility] Urine URINE SPECIMEN / Unknown Non-Blood / Unknown 10/23/2024 2:45 PM CREDIT CONSULTANT 10/23/2024 2:45 PM CREDIT CONSULTANT Narrative Organism Antibiotic Method Susceptibility Klebsiella pneumoniae [...] I Ciaran Wayne MD MICROBIOLOGY Final Result [facility] [address] [place] [address], * (ABNORMAL) HEMOGLOBIN A1C (10/23/2024 2:36 PM CREDIT CONSULTANT) HEMOGLOBIN A1C 5.7(H) <5.7 % of total Hgb [facility] Comment: For someone without known diabetes, [...] BLOOD SPECIMEN / Unknown 10/23/2024 2:36 PM CREDIT CONSULTANT 10/23/2024 2:37 PM CREDIT CONSULTANT us Ciaran Wayne MD CHEMISTRY Final Result [facility] [address] [place] [address], [facility] [address] [place] [address] * (ABNORMAL) LIPID PANEL W REFLEX MEASURED LDL (10/23/2024 2:36 PM CREDIT CONSULTANT) [facility] CHOLESTEROL, TOTAL 173 <200 mg/dL [facility] HDL CHOLESTEROL 49(L) > OR = 50 mg/dL [facility] TRIGLYCERIDES 353(H) <150 mg/dL [facility] Comment: If a non-fasting specimen was collected, consider repeat triglyceride testing on a fasting specimen if clinically indicated. Paco et al. J. of Clin. Lipidol. 2015;9:129-169. LDL-CHOLESTEROL 81 mg/dL (calc) [facility] Comment: Reference range: <100 Desirable range <100 mg/dL for primary prevention; <70 mg/dL for patients with CHD or diabetic patients with > or = 2 CHD risk factors. LDL-C is now calculated using the Ele calculation, which is a validated novel method providing better accuracy than the Friedewald equation in the estimation of LDL-C. Matti GALVAN et al. GEOVANY. 2013;310(19): 4155-8007 (http://education.Cons[employer]ant [employer]place/faq/SMS265) CHOL/HDLC RATIO 3.5 <5.0 (calc) [facility] NON HDL CHOLESTEROL 124 <130 mg/dL (calc) [facility] Comment: For patients with diabetes plus 1 major ASCVD risk factor, treating to a non-HDL-C goal of <100 mg/dL (LDL-C of <70 mg/dL) is considered a therapeutic option. Blood BLOOD SPECIMEN / Unknown 10/23/2024 2:36 PM CREDIT CONSULTANT 10/23/2024 2:37 PM CREDIT CONSULTANT Ciaran Wayne MD CHEMISTRY Final Result Performing Organization Address [facility] Co de Phone Number [facility] [address] [place] [address], [facility] [address] [place] [phone] * (ABNORMAL) VITAMIN D 25 (DEFICIENCY) (10/23/2024 2:36 PM CREDIT CONSULTANT) VITAMIN D,25-OH,TOTAL,IA 26(L) 30 - 100 ng/mL [facility] Comment: Vitamin D Status 25-OH Vitamin D: Deficiency: <20 ng/mL Insufficiency: 20 - 29 ng/mL Optimal: > or = 30 ng/mL For 25-OH Vitamin D testing on patients on D2-supplementation and patients for whom quantitation of D2 and D3 fractions is required, the [facility] 25-OH VIT D, (D2,D3), LC/MS/MS is recommended: order code 83573 (patients >2yrs). See Note 1 Note 1 For additional information, please refer to http://education.[employer]/faq/AJQ012 (This link is being provided for informational/ educational purposes only.) Blood BLOOD SPECIMEN / Unknown 10/23/2024 2:36 PM CREDIT CONSULTANT 10/23/2024 2:37 PM CREDIT CONSULTANT Ciaran Wayne MD SEND OUTS Final Result [facility] [employer] [facility] [address] [place] [address], [place] [phone] [facility] [address] [facility] [place] [address] * (ABNORMAL) BASIC METABOLIC PANEL (10/23/2024 2:36 PM CREDIT CONSULTANT) GLUCOSE 91 65 - 99 mg/dL [facility] [...] BLOOD SPECIMEN / Unknown 10/23/2024 2:36 PM CREDIT CONSULTANT 10/23/2024 2:37 PM CREDIT CONSULTANT Ciaran Wayne MD CHEMISTRY Final Result [facility] [address] [place] [address], [place] [phone] [facility] [address] [facility] [place] [address] * COLONOSCOPY (12/24/2023 10:32 AM CDT) 12/24/2023 [...] an adequate candidate for conscious sedation. The [id number] was passed through the anus and advanced [...] 10:32 AM Procedure Code(s): --- Professional --- 16830, Colonoscopy, flexible; with biopsy, single or multiple Diagnosis Code(s): --- Professional --- Z12.11, Encounter for screening formalignant neoplasm of colon Z98.0, Intestinal bypass and anastomosisstatus K50.00, Crohn's disease of small intestine without complications CPT copyright 2022 [employer]. All rights reserved. The codes documented in this report are preliminary and upon food beverage supervisor reviewmay be revised to meet current compliance [...] recommended in 3-5 years. Florence Abarca PA-C [facility] 03/05/2022 Narrative 03/05/2022 8:16 AM CDT For Patients: Results are automatically released to your [facility] account once available, in compliance with federal regulations. This means that you may see your results before your provider has had a chance to review them. Please allow 2-3 business days for your provider to comment on the results. XR DXA Bone Mineral Density (BMD) EXAM LOCATION: [address] [address] PATIENT NAME: Chrissy Figueroa DATE OF : [...] two scanners are made by the same brazing machine operator helper. PROCEDURE: Dual-energy x-ray absorptiometry performed with routine [...] ve Non-Reacti ve 06/27/2016 9:24 PM CDT [facility] Blood BLOOD SPECIMEN / Unknown Venipuncture / Unknown 06/27/2016 11:18 AM CDT 06/27/2016 11:38 AM CDT Narrative [facility] - 06/27/2016 9:24 PM CDT Antibodies to HCV not detected; does not exclude the possibility of exposure to HCV. Ciaran Wayne MD SEND OUTS Final Result [facility] [address] [place] [address], [place] from Last 3 Months or Most Recently Relevant to Health Maintenance Insurance [facility] MEDICARE PART B HB ONLY [facility] * Guarantor: CHRISSY FIGUEROA I Account Type Relation to Patient Date of Phone Billing Address Motor Vehicle [address] [place] [address] [facility] [place] Advance Directives Documents on File Type Date Recorded Patient Legal Job Titles Expl anation Healthcare Directive 09/06/2022 023 * [...] Comments Code Status Discussion: Discussed Care Teams Chair Pad Maker Relationship Specialty Start Date End Date Ciaran Wayne MD [address] [place] [address] PCP - General Family Practice 03/18/14 Ciaran Wayne MD [address] [place] [address] Family Practice 07/08/12 Benita Navas RN [address] [address] [employer] [place] [facility]istered Nurse 08/26/16 Racheal Velazquez RN [address] [facility] [address] [place], [place] [id number] [employer] - [facility] Registered Nurse 10/24/16 Katherine Guzman RN [address] [facility] [address] [place], [place] [id number] [employer] [place] [facility] Registered Nurse 07/23/21
[2024-12-26] MEDS: SIMETHICONE/SOD BICARB/CIT AC 1 EACH GRAN.EF.PK PO (09:47)
[2024-12-26] MEDS: 0.9 % SODIUM CHLORIDE 1000 ml 1,000 ML IV (09:49)
[2024-12-26 09:51] LABS: Chloride* 110 mmol/L (96-114); Sodium* 138 mmol/L (135-149)
[2024-12-26 09:52] LABS: Potassium* 3.7 mmol/L (3.6-5.1)
[2024-12-26 09:54] LABS: Blood Urea Nitrogen* 19 mg/dL (7-30); Est. Creatinine Clearance* 47.27; Estimated Glomerular Filt Rate 59 ml/min
[2024-12-26 09:55] LABS: Anion Gap 8 mEq/L (7-15); Calcium* 8.6 mg/dL (8.4-10.6); Carbon Dioxide* 20 mmol/L (20-32); Glucose* 100 mg/dL (60-115)
[2024-12-26] MEDS: NITROGLYCERIN 0.4 MG TAB.SUBL SUBLINGUAL (10:10)
[2024-12-26] MEDS: 0.9 % SODIUM CHLORIDE 1000 ml 1,000 ML 125 ML IV (11:05)
[2024-12-26] MEDS: GLUCAGON,HUMAN RECOMBINANT 1 MG/ML VIAL IV (11:06)
== END 2024-12-26 14:19 | disposition short-term general hospital (02) ==
PROVIDERS: Emergency Provider Family Medicine; PCP Family Medicine
DX: T18.128A Food in esophagus causing other injury, initial encounter (principal)
CPT/HCPCS: 36415; 80048; 85025; 93005; 94761; 96374; 99284; 99285; A9270; J1610; J7030

== ENCOUNTER 2024-12-26 14:25 | Outpatient (CLI) | payer OTHER, SELFPAY | END 2024-12-26 14:26 | disposition home or self-care (01) | LOC: AMB 12-31 14:59 | PROVIDERS: PCP Family Medicine; Visit Provider Family Medicine | DX: T18.128A Food in esophagus causing other injury, initial encounter (principal) | CPT/HCPCS: A0425; A0427 ==